=== PATIENT | male | born 1980 | race Caucasian/White ===

== ENCOUNTER 2016-07-27 09:00 | Emergency (ER) | payer OTHER ==
[~2016-07-27] VITALS: Wt 138.0 kg
[2016-07-27] MEDS ORDERED: KETOROLAC 30 MG INJ IM STA (10:17)
--- NOTE | 2016-07-27 10:24 | ERD ---
ER Documentation Chief Complaint Date/Time DATE: 07/27/16 TIME: 10:23 Chief Complaint RIGHT LOWER BACK PAIN NON RADIATING AND FEELS PRESSURE ON HIP X DEW DAYS HPI 36 y/o male presents to ED for right lower back pain. Pain was described as sharp that radiates down to his right lower extremity with pain rate of 10/10 at this time. Patient stated that he has this pain for years already but recalls that it got worse last Monday when he was lifting a big box. Denies headache, loss of consciousness, dizziness, blurry vision, changes in vision, photophobia, facial pain, ear pain, throat pain, difficulty swallowing, neck pain, shoulder pain, chest pain, cough, hemoptysis, abdominal pain, back pain, loss of appetite, nausea, vomiting, hematochezia, diarrhea, constipation, urinary symptoms, bladder and bowel incontinences, numbness or tingling sensation, difficulty walking, recent travel, recent exposure to illness, recent antibiotic use in the last 3 months, fever, chills. Allergy: NKA PMH: Chronic back pain, spinal injury Medications: Denies Surgery: Denies Family history: Denies Primary Social History: Works as a drug and alcohol counselor. Smokes 2 sticks of cigarettes in a day. Denies use of alcohol, use of illegal drugs. ROS All systems reviewed and are negative except as per history of present illness. Medications Home Meds Active Scripts Cyclobenzaprine Hcl* (Cyclobenzaprine Hcl*) 10 Mg Tablet, 10 MG PO TID, #15 TAB Prov:RUTHANN MATUTE 07/27/16 Allergies Allergies: Coded Allergies: No Known Allergy (Unverified , 07/27/16) PMhx/Soc Hx Miscellaneous Medical Probl: Yes (SPINAL CORD INJURY) Hx Alcohol Use: Yes (USED TO DRINK ALCOHOL) Hx Substance Use: Yes (USED TO TAKE DRUGS) Hx Tobacco Use: Yes Smoking Status: Current every day smoker FmHx Denies Physical Exam Vitals Vital Signs Date Time Temp Pulse Resp B/P Pulse Ox O2 Delivery O2 Flow Rate FiO2 07/27/16 11:52 135/78 07/27/16 09:03 98.6 81 20 165/91 99 Physical Exam CONSTITUTIONAL: Well-appearing; well-nourished; in no apparent distress. HEAD: Normocephalic; atraumatic. EYES: Conjunctiva clear, sclera non-icteric, EOM intact. PERRL Ears: Hearing intact. EACs clear, TMs non-bulging, non-inflamed, translucent & mobile, ossicles normal appearance, No obstructions, no erythema, no discharges Nose: No obstructions. No polyps. No external lesions. Mucosa non-inflamed. No external lesions, septum and turbinates normal. No rhinorrhea. No discharges. Frontal sinus is non-tender to palpation. Maxillary sinus is non-tender to palpation. MOUTH: Moist mucous membranes, no lesion, no obstructions, no vesicles, no thrush, patent airway Throat: Uvula in midline. Right tonsil is +1 with no erythema, no exudate. Left tonsil is +1 with no erythema, no exudate. Tolerating secretions well. Good gag reflex. Patent airway. Neck: Supple, without lesions, bruits, or adenopathy. No mass. Thyroid non- enlarged and non-tender to palpation. CHEST: Symmetrical chest. Respirations even and not labored. No retractions noted. CARDIOVASCULAR: Normal S1, S2. RRR. No murmurs, gallops. RESPIRATORY: Normal chest excursion with respiration; breath sounds clear and equal bilaterally; no wheezes, rhonchi, or rales. Breathing even and unlabored. Speaking in clear, full, and complete sentences w/ ease. ABDOMEN: Normal bowel sounds normal. Soft, round, non-distended, non-guarding, no tenderness, no rebound, no organomegaly, no masses, no pulsating abdominal mass. No hernia. No peritoneal signs. : No CVA tenderness. BACK: Symmetrical shoulder. Spine is midline without deformity, tenderness. No evidence of trauma or deformity. PELVIS: Stable pelvis. No evidence of trauma or deformity. MUSCULOSKELETAL: Normal gait and station. No misalignment, asymmetry, crepitation, defects, tenderness, masses, effusions, decreased range of motion, instability, atrophy or abnormal strength or tone in the head, neck, spine, ribs , pelvis or extremities. No calf tenderness. Positive right straight leg test. NEUROVASCULAR: Distal pulses are present. Pedal pulse are present, equal, and normal. Capillary refills are < 2 seconds. NEUROLOGIC: Alert and oriented x4. Speaks full and clear sentences. Cranial Nerves II-XII normal. Sensation to pain, touch, and proprioception normal. Grossly unremarkable. No neurologic deficits. Romberg test is negative. PSYCHOLOGICAL: The patients mood and manner are appropriate. No hallucinations , delusions. Not SI. Not HI. Has the capacity to decide for self SKIN: Normal for age and ethnicity; warm; dry; good turgor; no apparent lesions or exudates. No rashes, hives, discoloration. Intact. Results 24 hrs Current Medications Medications (Trade) Dose Ordered Sig/Pascual Route PRN Reason Start Time Stop Time Status Last Admin Dose Admin Ketorolac Tromethamine (Toradol) 30 mg ONCE STAT IM 07/27/16 10:17 07/27/16 10:27 DC 07/27/16 10:24 Procedures/MDM Examination: Unremarkable examination except negative right straight leg test. Disease process, medical treatment was explained to the patient and family member. They verbalized understanding and agreed with the diagnostic tests, medical treatment, and follow-up care. Radiology: FINDINGS: There is mild lumbar spondylosis. The vertebral bodies are otherwise normal in mineralization, architecture and alignment. No fractures or osseous lesions are identified. There is no evidence of subluxation. The disk spaces are unremarkable. The facet joints are unremarkable. Soft tissues are unremarkable. IMPRESSION: Mild lumbar spondylosis Treatment: Toradol IM Re-evaluation: Relieve the pain. Consultation: None Differential diagnosis: Chronic low back pain versus sciatica versus fracture versus strain Medical decision makin36 y/o male presents to ED for right lower back pain. Pain was described as sharp that radiates down to his right lower extremity with pain rate of 10/10 at this time. Patient stated that he has this pain for years already but recalls that it got worse last Monday when he was lifting a big box. Patient's complaint, history, diagnostic test results are consistent with my final diagnosis of chronic low back pain, sciatica. Medications prescribed are the following: Motrin, Flexeril Patient and family member are made aware of the side effects and adverse reactions of the medications prescribed. Instructed on when to seek emergent and medical attention in case allergic/anaphylactic reactions or severe side effects and or adverse reactions to medications. Patient and family member verbalized understanding. Patient instructed Instructed to follow-up with his PCP in 24-48 hours. PCP to refer patient to EENT, Foundation Relations Manager, Yield Loss Inspector, Gemologist, Hotel Manager, Urologist, Orthopedics, Knurling Machine Tender in 24-48 hours. Instructed to Call 911 for chest pain, shortness of breath. Advised to come back here in ED as soon as possible for severity of symptoms which includes but not limited to: any new symptoms; shortness of breath/difficulty of breathing; cardiovascular changes; severe gastrointestinal symptoms; signs and symptoms of bleeding and or infection; signs of compartment syndrome/neurovascular changes; neurological changes/deficits. Patient and family member verbalized understanding. Upon discharge, patient is alert and oriented x 4, speaks full and clear sentences, denies pain, has no neurological deficits, has no neurovascular deficits, difficulty of breathing. Breathing even and unlabored. Lung sounds are clear to auscultation. Not in distress. Appears comfortable. Ambulatory with steady gait. Appears satisfied with care provided here in ED. Departure Condition: Good Additional Instructions: Follow-up with PCP in 24-48 hours. PCP to refer patient to pain specialist. RUTHANN MATUTE Jul 27, 2016 10:24
--- NOTE | 2016-07-27 11:09 | RADRPT ---
PROCEDURE: XR Lumbar Spine. CLINICAL INDICATION: Low back pain. TECHNIQUE: 3 views of the lumbar spine are available for review COMPARISON: None available FINDINGS: There is mild lumbar spondylosis. The vertebral bodies are otherwise normal in mineralization, archi tecture and alignment. No fractures or osseous lesions are identified. There is no evidence of sub luxation. The disk spaces are unremarkable. The facet joints are unremarkable. Soft tissues are unr emarkable. IMPRESSION: Mild lumbar spondylosis RPTAT: HGDB .Srinivasan Atwood MD, MD Date Time Electronically viewed and signed by .Srinivasan Atwood MD, on 07/27/2016 11:09 .B/
[2016-07-27] MEDS ORDERED: CYCL-319 PO (11:29)
[2016-07-27 11:52] VITALS: BP 135/78
== END 2016-07-27 11:53 | disposition home or self-care (01) ==
LOC: FTE 09:00
DX: M54.41 Lumbago with sciatica, right side (principal); F17.210 Nicotine dependence, cigarettes, uncomplicated
CPT/HCPCS: 72100; J1885; 96372

== ENCOUNTER 2018-05-24 20:12 | Emergency (ER) | END 2018-05-24 21:24 | disposition home or self-care (01) ==

== ENCOUNTER 2018-09-25 18:31 | Emergency (ER) | payer OTHER ==
[~2018-09-25] VITALS: Ht 190.5 cm; Wt 159.1 kg
[~2018-09-25 18:31] MED LIST: CYCL10TA7 PO; ONDA4TAB14 PO
[2018-09-25 18:56] VITALS: Ht 190.5 cm; Wt 159.1 kg
[2018-09-25] MEDS ORDERED: ONDANSETRON 4 MG INJ IV STA (22:22)
[2018-09-25] MEDS ORDERED: SOD CHLORIDE 0.9% 1,000 ML IV STA (22:22)
[2018-09-25] MEDS ORDERED: PANTOPRAZOLE 40 MG INJ IV ONE (22:30)
--- NOTE | 2018-09-25 22:33 | ERD ---
ER Documentation Chief Complaint Chief Complaint AP VS EPIGASTRIC PAIN WITH NAUSEA/VOMITING, +DIAPHOESIS HPI This is a 38-year-old male who is presenting for epigastric pain with nausea, multiple episodes of vomiting and multiple episodes of nonbloody diarrhea. The patient reports that symptoms began approximately 2 weeks ago and have been getting progressively worse since then. The patient describes waxing and waning burning cramping epigastric pain. The patient has also had episodes of diaphoresis. The patient reports that his vomit was initially nonbilious and nonbloody. However, he noticed flecks of blood in his vomit this morning, which was concerning to the patient. The patient reports mostly dry heaving through the afternoon, most recently in the waiting room which has only been mucus. The patient also reports general abdominal bloating. The patient had an episode similar to this in May 2018. He was treated with Zofran with improvement of his symptoms. The patient does not endorse any current exacerbating or alleviating factors. The patient denies any alcohol use. He denies any black or bloody or tarry stools. He denies any constipation. He denies dysuria or hematuria or urgency or frequency. The patient denies fever or chills. The patient has had no headache or vision changes. The patient does not endorse neck or back pain. The patient denies lightheadedness or dizziness. The patient has had no chest pain or trouble breathing. The patient has had no focal deficits. The patient has had no weakness or numbness or tingling to the face or extremities. ROS All systems reviewed and are negative except as per history of present illness. Medications Home Meds Discontinued Scripts Ondansetron (Ondansetron Odt) 4 Mg Tab.rapdis, 4 MG PO Q6H PRN for NAUSEA AND/OR VOMITING, #10 TAB Prov:JUAN QURESHI PA-C 05/24/18 Cyclobenzaprine Hcl* (Cyclobenzaprine Hcl*) 10 Mg Tablet, 10 MG PO TID, #15 TAB Prov:RUTHANN MATUTE 07/27/16 Allergies Allergies: Coded Allergies: No Known Allergy (Unverified , 09/26/18) PMhx/Soc History of Surgery: No Anesthesia Reaction: No Hx Neurological Disorder: No Hx Respiratory Disorders: No Hx Cardiac Disorders: No Hx Psychiatric Problems: No Hx Miscellaneous Medical Probl: Yes (SPINAL CORD INJURY) Hx Alcohol Use: Yes (QUIT SEVERAL YEARS AGO) Hx Substance Use: Yes (QUIT SEVERAL YEARS AGO) Hx Tobacco Use: Yes FmHx Family History: No diabetes Physical Exam Vitals Vital Signs Date Temp Pulse Resp B/P (MAP) Pulse Ox O2 O2 Flow FiO2 Time Delivery Rate 09/25/18 97.6 22 196/94 100 23:41 (128) 09/25/18 97.6 100 22 196/94 100 18:56 (128) Physical Exam Const: No apparent distress, well-developed, well-nourished Head: Normocephalic, Atraumatic Eyes: Normal Conjunctiva. Extraocular movements intact. Pupils equal, round and reactive to light ENT: Normal External Ears, Nose and Mouth. Neck: Full range of motion. No meningismus. Resp: Clear to auscultation bilaterally, No wheezes, rales or rhonchi Cardio: Regular rate and rhythm. No murmurs, rubs or gallops Abd: Soft, non distended. Epigastric tenderness. Normal bowel sounds Skin: No petechiae or rashes Back: No midline tenderness. No CVA tenderness Ext: No cyanosis, or edema Neur: Awake and alert, oriented 4. Cranial nerves intact. No facial droop. Normal strength, sensation and coordination. Psych: Normal Mood and Affect Result Diagram: 09/25/18 2308 09/25/18 2308 Results 24 hrs Laboratory Tests Test 09/25/18 23:00 09/25/18 23:08 Urine Color ARIELLA Urine Clarity CLOUDY Urine pH 7.0 Urine Specific [place] 1.033 Urine Ketones 2+ mg/dL Urine Nitrite NEGATIVE mg/dL Urine Bilirubin NEGATIVE mg/dL Urine Urobilinogen NEGATIVE mg/dL Urine Leukocyte Esterase NEGATIVE Vishal/ul Urine Microscopic RBC 17 /HPF Urine Microscopic WBC 5 /HPF Urine Bacteria MODERATE /HPF Urine Mucus MANY /HPF Urine Hemoglobin NEGATIVE mg/dL Urine Glucose NEGATIVE mg/dL Urine Total Protein 3+ mg/dl White Blood Count 14.3 10^3/ul Red Blood Count 5.64 10^6/ul Hemoglobin 16.6 g/dl Hematocrit 49.7 % Mean Corpuscular Volume 88.1 fl Mean Corpuscular Hemoglobin 29.4 pg Mean Corpuscular Hemoglobin Concent 33.4 g/dl Red Cell Distribution Width 12.9 % Platelet Count 374 10^3/UL Mean Platelet Volume 9.1 fl Immature Granulocytes % 0.600 % Neutrophils % 86.9 % Lymphocytes % 9.6 % Monocytes % 2.8 % Eosinophils % 0.0 % Basophils % 0.1 % Nucleated Red Blood Cells % 0.0 /100WBC Immature Granulocytes # 0.090 10^3/ul Neutrophils # 12.5 10^3/ul Lymphocytes # 1.4 10^3/ul Monocytes # 0.4 10^3/ul Eosinophils # 0.0 10^3/ul Basophils # 0.0 10^3/ul Nucleated Red Blood Cells # 0.0 10^3/ul Prothrombin Time 12.3 Sec Prothrombin Time Ratio 1.0 INR International Normalized Ratio 0.90 Sodium Level 145 mmol/L Potassium Level 3.8 mmol/L Chloride Level 104 mmol/L Carbon Dioxide Level 25 mmol/L Anion Gap 16 Blood Urea Nitrogen 15 mg/dl Creatinine 1.00 mg/dl Est Glomerular Filtrat Rate mL/min > 60 mL/min Glucose Level 128 mg/dl Calcium Level 10.1 mg/dl Total Bilirubin 0.4 mg/dl Direct Bilirubin 0.00 mg/dl Indirect Bilirubin 0.4 mg/dl Aspartate Amino Transf (AST/SGOT) 48 IU/L Alanine Aminotransferase (ALT/SGPT) 91 IU/L Alkaline Phosphatase 59 IU/L Total Protein 8.5 g/dl Albumin 5.0 g/dl Globulin 3.50 g/dl Albumin/Globulin Ratio 1.42 Lipase 129 U/L Current Medications Medications Dose Sig/Pascual Start Time Status Last (Trade) Ordered Route PRN Stop Time Admin Dose Reason Admin Sodium 1,000 ml @ Q1H STAT 09/25/18 DC 09/25/18 Chloride 1,000 mls/hr IV 22:22 23:14 09/25/18 23:21 Ondansetron 8 mg ONCE STAT 09/25/18 DC 09/25/18 HCl (Zofran IV 22:22 23:15 Inj) 09/25/18 22:24 80 mg ONCE ONCE 09/25/18 DC 09/25/18 Pantoprazole IV 22:30 23:15 (Protonix 09/25/18 22:31 Iv) Ketorolac 15 mg ONCE STAT 09/26/18 DC Tromethamine IV 01:44 (Toradol) 09/26/18 01:50 Famotidine 20 mg ONCE ONCE 09/26/18 DC (Pepcid Iv) IV 02:00 09/26/18 02:01 40 ml ONCE ONCE 09/26/18 DC Miscellaneous PO 02:00 Medication 09/26/18 02:01 (Gi Cocktail (2)) 200 ml @ ONCE ONCE 09/26/18 Ciprofloxacin 200 mls/hr IVPB 02:30 / Dextrose 09/26/18 03:29 100 ml @ ONCE ONCE 09/26/18 Metronidazole 100 mls/hr IVPB 02:30 09/26/18 03:29 Ondansetron 4 mg ONCE STAT 09/26/18 DC HCl (Zofran IV 02:10 Inj) 09/26/18 02:12 Procedures/MDM MDM The patient's presentation warrants further investigation. Previous medical marlon rds, if available, were reviewed. LABS The patient's laboratory testing was obtained and reviewed. No emergent treatment was required unless described below. CBC: Leukocytosis with shift, concerning for a possible infection. No E/o anemia or thrombocytopenia Chemistry: No E/o severe acidosis or alkalosis or renal failure or diabetic ketoacidosis. Mild transaminitis, likely reactive. Lipase: No E/o pancreatitis PT/INR: No E/o significant coagulopathy Urine: E/o acute infection with hematuria EKG EKG read by me: Rate/Rhythm: Sinus rhythm at 71 bpm with a sinus arrhythmia Intervals: Normal Lee: Normal Impression: No evidence of acute ischemia. Sinus arrhythmia IMAGING Imaging and Radiology interpretation reviewed. CXR FINDINGS: The heart and mediastinum are within normal limits. The lungs are clear. There is no pleural effusion or pneumothorax. IMPRESSION: No acute disease. Electronically viewed and signed by .Milton Wheeler MD, MD on 09/25/2018 23:27 CT Abd/Pelvis FINDINGS: The lung bases are clear. Evaluation of the abdominal and pelvic viscera is limited by the lack of oral and intravenous contrast. The liver is diffusely hypodense, consistent with fatty infiltration. The gallbladder is normal in appearance. The common bile duct is not dilated. The spleen is not enlarged. No pancreatic lesion is identified and there is no pancreatic ductal dilatation. The adrenal glands are unremarkable. The kidneys are normal in size. There is no perinephric fat stranding. No hydronephrosis is seen. No urinary stone is identified. The small and large bowel are normal in caliber. The transverse, descending, and rectosigmoid colon are underdistended, limiting e valuation for colonic wall thickening. No pericolonic inflammation is seen, however. The appendix is normal. The urinary bladder is unremarkable. The pelvic organs are within normal limits. No lymphadenopathy is identified. There is no ascites. No pneumoperitoneum is seen. There are no arterial calcifications. No suspicious osseous lesion is identified. IMPRESSION: Limited evaluation for transverse, descending, and rectosigmoid colon wall thickening due to colonic underdistension. Colitis cannot be excluded in these regions, although no pericolonic inflammation is seen. Normal appendix. No obstructive uropathy or urinary stone. Fatty infiltration of the liver. Electronically viewed and signed by .Chintan Ch MD, on 09/26/2018 01:46 TREATMENT/DISPOSITION The patient presents with epigastric abdominal pain. I do have suspicion for gastritis versus GERD versus PUD. The patient was given IV fluids, Zofran, GI cocktail, Pepcid and Protonix in the emergency department with some improvement of his symptoms. While there is no obvious evidence of colitis on the CT scan, he reportedly cannot be excluded. The patient does have a mild leukocytosis and has had diarrhea over the last 2 weeks. I do intend to treat with Cipro and Flagyl. There is also evidence of a possible urinary tract infection, which is potentially from his persistent diarrhea. This will be treated with the antibiotics described above. The patient has not had any episodes of hematemesis in the emergency department. I have low suspicion for an esophageal tear or Boerhaave's syndrome. While PUD is possible, I do not see evidence of pneumoperitoneum. I have low suspicion for viscus perforation. The patient does not have any evidence of peritonitis. The patient does not have clinical symptoms concerning for mesenteric ischemia or ischemic colitis. The patient does not have right upper quadrant tenderness, and I have low suspicion for gallstones, cholecystitis or biliary colic. The patient does not have left upper quadrant tenderness. I have low suspicion for pancreatitis. The patient does not have any right lower quadrant tenderness, or periumbilical tenderness. The patient CT scan does not reveal appendicitis. The patient does not have any left lower quadrant tenderness, and I have low suspicion for diverticulosis or diverticulitis. The patient does not have any flank tenderness. The patient CT scan does not reveal nephrolithiasis and I have low suspicion for renal colic. The patient does not have any palpable pulsatile mass or severe abdominal pain radiating to the back. I have low suspicion for aortic aneurysm, dissection or rupture. The patient is not septic clinically, and I do not believe the patient requires a full septic workup. DISCHARGE Upon reevaluation of the patient, symptoms have improved. No emergent diagnoses were identified. At this time, I feel that the patient stable for discharge. The patient was instructed to follow-up with a primary care physician in 1-3 days. The patient will be given strict precautions with which to return to the emergency department. Prescriptions: Zofran, Protonix, Cipro, Flagyl The patient's blood pressure was elevated at greater than 120/80 while in the emergency department. The patient was otherwise stable with no evidence of hypertensive urgency or emergency. The patient does not require admission for blood pressure control. I have discussed with the patient the risks of hypertension. I have instructed the patient to return to the ER for any new or worsening symptoms including chest pain, shortness of breath, headache, blurred vision, confusion, nausea, vomiting or LOC. I have advised the patient to follow up with the primary care physician for outpatient monitoring and treatment for hypertension in 1-3 days. Disclaimer: Inadvertent spelling and grammatical errors are likely due to EHR/dictation software use and do not reflect on the overall quality of patient care. Note that the electronic time recorded on this note does not necessarily reflect the actual time of the patient encounter. Departure Diagnosis: Primary Impression: Colitis Additional Impressions: Epigastric pain Nausea & vomiting Vomiting type: unspecified Vomiting Intractability: non-intractable Qualified Codes: R11.2 - Nausea with vomiting, unspecified Leukocytosis Leukocytosis type: unspecified Qualified Codes: D72.829 - Elevated white blood cell count, unspecified Transaminitis Hematuria Hematuria type: unspecified type Qualified Codes: R31.9 - Hematuria, unspecified UTI (urinary tract infection) Urinary tract infection type: acute cystitis Hematuria presence: with hematuria Qualified Codes: N30.01 - Acute cystitis with hematuria Condition: Stable Patient Instructions: Bacterial Gastroenteritis, Epigastric Pain (Uncertain Cause), Nausea and Vomiting-Adult, Understanding Urinary Tract Infections (UTIs) Additional Instructions: Thank you for for coming to [facility] for your care today. Please ask your nurse or provider if you have questions about your care today and do not leave until all your questions have been answered. Please use any medications given as directed and follow-up with your doctor (or the doctor you were referred to) in the next 1-3 days. If you do not have a primary care doctor you may follow up at the [facility] or [facility] (listed below). You may also use motrin and tylenol as needed for fever and/or pain unless instructed otherwise by your provider or nurse. Indications for more urgent follow-up have been discussed, but you may return to the Emergency Department at ANY time for any worrisome or worsening symptoms. If you have abdominal pain, please know that no test or exam you received is perfect and you should follow up within 8 hours for continued pain. If you had any imaging studies today, such as an X-Ray or CT Scan, these studies will be reviewed later by a radiologist. You will be called if there are important findings that were not identified today, so make sure the contact information you provided at registration is correct. If you received any narcotic pain control medicine today, such as Vicodin, Morphine or Dilaudid, your coordination and judgment may be affected for a number of hours. Please do not drive or operate heavy machinery, and you may want someone to assist you at home. If you were given a prescription for narcotic medication, be aware that it is very addictive- use sparingly and only if necessary. PLEASE SEEK FURTHER EVALUATION AND MANAGEMENT AT YOUR DOCTORS OFFICE WITHIN THE NEXT 1-3 DAYS. IT IS YOUR RESPONSIBILITY TO MAKE AN APPOINTMENT FOR FOLOW-UP CARE. IF YOU HAVE A PRIMARY DOCTOR, PLEASE CALL THEIR OFFICE TO SCHEDULE AN APPOINTMENT FOR FOLLOW UP. IF YOU DO NOT HAVE A PRIMARY DOCTOR YOU CAN CALL OUR PHYSICIAN REFERRAL HOTLINE AT IF YOU CAN NOT AFFORD TO SEE A PHYSICIAN YOU CAN CHOSE FROM THE FOLLOWING [facility]: [facility] [address] [facility] [place] [address] [facility] [address] [facility] [address] [facility] [address] [facility]. [facility]. [address] ANTONIETA POSEY MD Sep 25, 2018 22:33
[2018-09-26] MEDS ORDERED: KETOROLAC 15 MG INJ IV STA (01:44)
[2018-09-26] MEDS ORDERED: FAMOTIDINE 20 MG INJ IV ONE (02:00)
[2018-09-26] MEDS ORDERED: LIDOCAINE/MYLANTA 40 ML BTL PO ONE (02:00)
[2018-09-26] MEDS ORDERED: ONDANSETRON 4 MG INJ IV STA (02:10)
[2018-09-26] MEDS ORDERED: PANT40TA3 PO (02:24)
[2018-09-26] MEDS ORDERED: CIPR500T4 PO (02:24)
[2018-09-26] MEDS ORDERED: ONDA8TAB9 PO (02:24)
[2018-09-26] MEDS ORDERED: METR500T PO (02:24)
[2018-09-26] MEDS ORDERED: metroNIDAZOLE 500 MG/NS (PMX) 100 ML IVPB ONE (02:30)
[2018-09-26] MEDS ORDERED: CIPROFLOXACIN 400MG/D5W 200 ML IVPB ONE (02:30)
[2018-09-26 04:03] VITALS: BP 110/64; PULSE 86; RESP 16
== END 2018-09-26 04:08 | disposition home or self-care (01) ==
LOC: E/R 18:31
DX: K52.9 Noninfective gastroenteritis and colitis, unspecified (principal); D72.829 Elevated white blood cell count, unspecified; N30.01 Acute cystitis with hematuria; R74.0 Nonspecific elevation of levels of transaminase and lactic acid dehydrogenase [LDH]; Z87.891 Personal history of nicotine dependence
CPT/HCPCS: 36415; 71045; 74176; 80053; 81001; 83690; 85025; 85610; 93005; 96365; 96367; 96375; 96376; C9113; J0744; J1885; J2405; J7030; Z7502; Z7610

== ENCOUNTER 2018-09-27 10:10 | Observation (INO) | payer OTHER ==
[~2018-09-27] VITALS: Ht 193 cm; Wt 163.0 kg
[~2018-09-27 10:10] MED LIST changes: +CIPR500T4 PO; -CYCL10TA7 PO; +METR500T PO; -ONDA4TAB14 PO; +ONDA8TAB9 PO; +PANT40TA3 PO
[2018-09-27] MEDS ORDERED: KETOROLAC 15 MG INJ IV STA (10:57)
[2018-09-27] MEDS ORDERED: SOD CHLORIDE 0.9% 1,000 ML IV STA (10:57)
[2018-09-27] MEDS ORDERED: ONDANSETRON 4 MG INJ IV STA (11:17)
[2018-09-27] MEDS ORDERED: ONDANSETRON 4 MG INJ ONE (11:18)
[2018-09-27] MEDS ORDERED: DICYCLOMINE 20 MG INJ IM ONE (11:30)
[2018-09-27] MEDS ORDERED: ONDANSETRON 4 MG INJ IV PRN (13:00)
[2018-09-27] MEDS ORDERED: ACETAMINOPHEN 325 MG TAB PO PRN ×2 (13:00→16:00)
[2018-09-27] MEDS ORDERED: LORAZEPAM 2 MG INJ IV ONE (13:00)
--- NOTE | 2018-09-27 13:04 | ERD ---
ER Documentation Chief Complaint Chief Complaint Complains of abdominal pain Hx of colitis HPI 38-year-old male who presents the emergency room complaining of nausea vomiting and diarrhea with abdominal discomfort. Abdominal pain is 8 out of 10, cramping and diffuse, migratory. The patient was seen here 2 days ago diagnosed with colitis based on labs and CT imaging. Patient has not been able to tolerate oral intake and continues to have nausea vomiting at home. Patient was discharged with antibiotics but no recent travel, sick contacts, exposure to bacterial infection. ROS All systems reviewed and are negative except as per history of present illness. Medications Home Meds Active Scripts Ondansetron Hcl* (Zofran*) 8 Mg Tablet, 8 MG PO Q6H PRN for NAUSEA AND OR VOM ITING, #20 TAB Prov:ANTONIETA MOREJON MD 09/26/18 Pantoprazole* (Protonix*) 40 Mg Tablet.dr, 40 MG PO DAILY, #20 TAB Prov:ANTONIETA MOREJON MD 09/26/18 Metronidazole* (Flagyl*) 500 Mg Tablet, 500 MG PO TID for 7 Days, TAB Prov:ANTONIETA MOREJON MD 09/26/18 Ciprofloxacin Hcl* (Ciprofloxacin Hcl*) 500 Mg Tablet, 500 MG PO BID for 7 Days, TAB Prov:ANTONIETA MOREJON MD 09/26/18 Discontinued Scripts Ondansetron (Ondansetron Odt) 4 Mg Tab.rapdis, 4 MG PO Q6H PRN for NAUSEA AND/OR VOMITING, #10 TAB Prov:JUAN QURESHI PA-C 05/24/18 Cyclobenzaprine Hcl* (Cyclobenzaprine Hcl*) 10 Mg Tablet, 10 MG PO TID, #15 TAB Prov:RUTHANN MATUTE 07/27/16 Allergies Allergies: Coded Allergies: No Known Allergy (Unverified , 09/27/18) PMhx/Soc History of Surgery: No Anesthesia Reaction: No Hx Neurological Disorder: No Hx Respiratory Disorders: No Hx Cardiac Disorders: No Hx Psychiatric Problems: No Hx Miscellaneous Medical Probl: Yes (SPINAL CORD INJURY) Hx Alcohol Use: Yes (QUIT SEVERAL YEARS AGO) Hx Substance Use: Yes (QUIT SEVERAL YEARS AGO) Hx Tobacco Use: Yes Smoking Status: Current every day smoker FmHx Family History: No diabetes Physical Exam Vitals Vital Signs Date Temp Pulse Resp B/P (MAP) Pulse Ox O2 O2 Flow FiO2 Time Delivery Rate 09/27/18 58 20 151/81 98 Room Air 12:24 (104) 09/27/18 98.6 65 20 170/102 100 10:13 (124) Physical Exam General: Well developed, well nourished, no acute distress Head: Normocephalic, atraumatic. Eyes: Pupils equally reactive, EOM intact ENT: Slightly dry mucous membranes Neck: Supple, no lymphadenopathy Respiratory: Lungs clear bilaterally, no distress Cardiovascular: RRR, no murmurs, rubs, or gallops Abdominal: Soft, mild inconsistent abdominal tenderness without localization or peritonitis : Deferred MSK: No edema, no unilateral swelling, 5/5 strength Neurologic: Alert and oriented, moving all extremities, normal speech, no focal weakness, no cerebellar signs Skin: No rash Psych: Normal mood Result Diagram: 09/27/18 1110 09/27/18 1110 Results 24 hrs Laboratory Tests Test 09/27/18 11:10 White Blood Count 10.2 10^3/ul Red Blood Count 5.82 10^6/ul Hemoglobin 17.0 g/dl Hematocrit 50.5 % Mean Corpuscular Volume 86.8 fl Mean Corpuscular Hemoglobin 29.2 pg Mean Corpuscular Hemoglobin Concent 33.7 g/dl Red Cell Distribution Width 12.7 % Platelet Count 345 10^3/UL Mean Platelet Volume 8.9 fl Immature Granulocytes % 0.300 % Neutrophils % 79.8 % Lymphocytes % 15.5 % Monocytes % 3.9 % Eosinophils % 0.1 % Basophils % 0.4 % Nucleated Red Blood Cells % 0.0 /100WBC Immature Granulocytes # 0.030 10^3/ul Neutrophils # 8.1 10^3/ul Lymphocytes # 1.6 10^3/ul Monocytes # 0.4 10^3/ul Eosinophils # 0.0 10^3/ul Basophils # 0.0 10^3/ul Nucleated Red Blood Cells # 0.0 10^3/ul Sodium Level 145 mmol/L Potassium Level 3.6 mmol/L Chloride Level 108 mmol/L Carbon Dioxide Level 21 mmol/L Anion Gap 16 Blood Urea Nitrogen 16 mg/dl Creatinine 1.14 mg/dl Est Glomerular Filtrat Rate mL/min > 60 mL/min Glucose Level 113 mg/dl Calcium Level 10.0 mg/dl Total Bilirubin 0.6 mg/dl Direct Bilirubin 0.00 mg/dl Indirect Bilirubin 0.6 mg/dl Aspartate Amino Transf (AST/SGOT) 55 IU/L Alanine Aminotransferase (ALT/SGPT) 94 IU/L Alkaline Phosphatase 67 IU/L Total Protein 8.4 g/dl Albumin 4.9 g/dl Globulin 3.50 g/dl Albumin/Globulin Ratio 1.40 Lipase 112 U/L Current Medications Medications Dose Sig/Pascual Start Time Status Last (Trade) Ordered Route PRN Stop Time Admin Dose Reason Admin Sodium 1,000 ml @ Q1H STAT 09/27/18 DC 09/27/18 Chloride 1,000 mls/hr IV 10:57 11:20 09/27/18 11:56 Ketorolac 15 mg ONCE STAT 09/27/18 DC 09/27/18 Tromethamine IV 10:57 11:20 (Toradol) 09/27/18 11:01 Ondansetron 4 mg ONCE STAT 09/27/18 DC 09/27/18 HCl (Zofran IV 11:17 11:42 Inj) 09/27/18 11:27 Ondansetron 4 mg STK-MED 09/27/18 DC HCl (Zofran ONCE .ROUTE 11:18 Inj) 09/27/18 11:19 Dicyclomine 10 mg ONCE ONCE 09/27/18 DC 09/27/18 HCl IM 11:30 11:42 (Bentyl) 09/27/18 11:35 Lorazepam 1 mg ONCE ONCE 09/27/18 DC 09/27/18 (Ativan) IV 13:00 12:50 09/27/18 13:01 Procedures/MDM LAB INTERPRETATION: I reviewed the laboratory testing and it shows nonspecific transaminitis that is mild and consistent with baseline improved white count MEDICAL DECISION MAKING: The patient has persistent symptoms of nausea vomiting diarrhea and abdominal pain. His abdominal exam is mostly benign. He had a CT imaging 2 days ago that showed possible colitis though it was a borderline read. The patient's presentations are likely consistent with viral etiology. Patient exhibits no focal tenderness that would be concerning for perforation or acute interabdominal process that would warrant repeat CT imaging. Patient will likely benefit from hydration and symptom control. Repeat laboratory testing will be reasonable. ER COURSE: * The patient's repeat laboratory testing shows no evidence of acute process. I believe this is consistent with viral process, no significant leukocytosis. Patient was given symptom control medication * The patient has persistent symptoms and multiple episodes of nausea vomiting in the emergency room. We discussed inpatient versus outpatient management, the patient feels very uncomfortable discharge. I advised him that there may not be significant interventions on an inpatient basis other than IV fluid hydration but the patient prefers to stay in the hospital. * Based on the fact the patient has not been able to tolerate p.o. intake he is at risk for more severe dehydration would warrant observation admission for further management. * I will hold on antibiotics as this is most likely a viral process, without fever and leukocytosis I believe antibiotics would likely complicate the picture and potentially worsen his diarrhea. CONSULTATION: [None] DISPOSITION PLAN: Accepting care team and consultations: I discussed the current laboratory data, diagnostic imaging and emergency care provided. Admitting team: Dr. Diaz Admitting team indication: Insurance directed Departure Diagnosis: Primary Impression: Abdominal pain Abdominal location: generalized Qualified Codes: R10.84 - Generalized abdominal pain Additional Impressions: Nausea vomiting and diarrhea Dehydration, mild Condition: Stable HILDA WHITE MD Sep 27, 2018 13:04
--- NOTE | 2018-09-27 15:56 | HP ---
Date/Time of Note Date/Time of Note DATE: 09/27/18 TIME: 15:50 Assessment/Plan VTE Prophylaxis Pharmacological prophylaxis: NA/contraindicated Pharm contraindication: low risk/ambulating Lines/Catheters IV Catheter Type (from Nrs): Saline Lock Assessment/Plan Hospital Course 1. Abdominal pain secondary to colitis Etiology is likely viral, patient has no fever or white count Supportive care, IV fluids Pain control IV fluids Clear liquid diet No indication for antibiotics, no evidence of sepsis 2. Mild hypernatremia IV fluids 3. Mild transaminitis Follow-up on hepatitis panel Prophylaxis: Ambulation Result Diagram: 09/27/18 1110 09/27/18 1110 Results 24hrs Laboratory Tests Test 09/27/18 11:10 White Blood Count 10.2 # Red Blood Count 5.82 Hemoglobin 17.0 Hematocrit 50.5 Mean Corpuscular Volume 86.8 Mean Corpuscular Hemoglobin 29.2 Mean Corpuscular Hemoglobin Concent 33.7 Red Cell Distribution Width 12.7 Platelet Count 345 Mean Platelet Volume 8.9 Immature Granulocytes % 0.300 Neutrophils % 79.8 H Lymphocytes % 15.5 Monocytes % 3.9 Eosinophils % 0.1 Basophils % 0.4 Nucleated Red Blood Cells % 0.0 Immature Granulocytes # 0.030 Neutrophils # 8.1 H Lymphocytes # 1.6 Monocytes # 0.4 Eosinophils # 0.0 Basophils # 0.0 Nucleated Red Blood Cells # 0.0 Sodium Level 145 H Potassium Level 3.6 Chloride Level 108 Carbon Dioxide Level 21 Anion Gap 16 H Blood Urea Nitrogen 16 Creatinine 1.14 Est Glomerular Filtrat Rate mL/min > 60 Glucose Level 113 Calcium Level 10.0 Total Bilirubin 0.6 Direct Bilirubin 0.00 Indirect Bilirubin 0.6 Aspartate Amino Transf (AST/SGOT) 55 H Alanine Aminotransferase (ALT/SGPT) 94 H Alkaline Phosphatase 67 Total Protein 8.4 H Albumin 4.9 Globulin 3.50 H Albumin/Globulin Ratio 1.40 Lipase 112 HPI/ROS Admit Date/Time Admit Date/Time September 27, 2018 Hx of Present Illness Patient is a 38-year-old male with no medical history, patient presented to the ER 2 days ago with abdominal pain and diarrhea and was diagnosed with colitis based on labs and CT abdomen. Patient was prescribed antibiotics but is unable to tolerate p.o. intake continues to have vomiting with nausea at home. Patient denies any travel history or sick contacts. Patient has no evidence of sepsis in the ER and has no other complaints. ROS Constitutional: no complaints, improved Eyes: no complaints ENT: no complaints Respiratory: no complaints Cardiovascular: no complaints Gastrointestinal: pain, nausea, vomiting Genitourinary: no complaints Musculoskeletal: no complaints Skin: no complaints Neurologic: no complaints Endocrine: no complaints Lymphatic: no complaints Psychological: no complaints, nl mood/affect Immunologic: no complaints PMH/Family/Social Past Medical History Medical History: no pertinent history Medications Current Medications Ondansetron HCl (Zofran Inj) 4 mg BRIDGE ORDER PRN IV NAUSEA/VOMITING; Start 09/27/18 at 13:00; Stop 09/28/18 at 12:59 Acetaminophen (Tylenol Tab) 650 mg ER BRIDGE PRN PO .MILD PAIN 1-3 OR TEMP; Start 09/27/18 at 13:00; Stop 09/28/18 at 12:59 Coded Allergies: No Known Allergy (Unverified , 09/27/18) Past Surgical History Past Surgical Hx: no surgical history Family History Significant Family History: no pertinent family hx Social History Alcohol Use: rarely Smoking Status: Current every day smoker Drug Use: none Exam/Review of Systems Vital Signs Vitals Vital Signs Date Temp Pulse Resp B/P (MAP) Pulse Ox O2 O2 Flow FiO2 Time Delivery Rate 09/27/18 98.6 60 16 157/95 98 Room Air 15:46 (115) Exam Constitutional: alert, oriented Respiratory: clear to auscultation Cardiovascular: regular rate and rhythm Gastrointestinal: soft; No distended Musculoskeletal: nl extremities to inspection LIZZ ADRIAN Sep 27, 2018 15:55
[2018-09-27] MEDS ORDERED: NACL 0.9% 3 ML SYG IV SCH (16:00)
[2018-09-27] MEDS ORDERED: ZOLPIDEM 5 MG TAB PO PRN (16:00)
[2018-09-27] MEDS: morphine 2 MG INJ IV PRN ×2 (16:05→20:00)
[2018-09-27 16:45] VITALS: BP 177/79; PULSE 56; RESP 18
[2018-09-27] MEDS: ONDANSETRON 4 MG INJ IV PRN (17:11)
[2018-09-27] MEDS: HYDROCODONE/APAP (5/325) TAB PO PRN ×2 (17:11→23:02)
[2018-09-27 17:16] VITALS: Ht 193 cm; Wt 163.0 kg
[2018-09-27 18:00] VITALS: BP 139/82; PULSE 78
[2018-09-27 18:20] VITALS: BP 139/82; PULSE 78
[2018-09-27] MEDS: 1/2 NS + KCL 20 MEQ 1,000 ML IV SCH (18:56)
[2018-09-27 20:14] VITALS: BP 120/68; PULSE 68; RESP 18
[2018-09-28] MEDS: morphine 2 MG INJ IV PRN ×3 (01:47→10:29)
[2018-09-28 01:48] VITALS: BP 122/65; PULSE 64; RESP 18
[2018-09-28] MEDS: ONDANSETRON 4 MG INJ IV PRN ×2 (01:53→10:29)
[2018-09-28] MEDS: 1/2 NS + KCL 20 MEQ 1,000 ML IV SCH ×2 (05:32→11:48)
[2018-09-28] MEDS: HYDROCODONE/APAP (5/325) TAB PO PRN ×2 (07:48→11:50)
[2018-09-28 08:42] VITALS: BP 135/81; PULSE 74; RESP 18
--- NOTE | 2018-09-28 11:29 | PDOCDIS ---
Discharge Instructions CONDITION [id number] Patient Condition: Fnsun6r Good HOME CARE INSTRUCTIONS: [id number] Diet Instructions: [id number] Regular ACTIVITY: [id number] Activity Restrictions: [id number] No Restrictions FOLLOW UP/APPOINTMENTS Follow-up Plan FOLLOW UP WITH YOUR PRIMARY CARE PHYSICIAN IN 1-2 WEEKS LIZZ ADRIAN Sep 28, 2018 11:29
--- NOTE | 2018-09-28 11:55 | DS ---
Date/Time of Note Date/Time of Note DATE: 09/28/18 TIME: 11:50 Discharge Summary Admission/Discharge Info Admit Date/Time Sep 27, 2018 at 13:01 Discharge Date/Time September 28, 2018 Discharge Diagnosis 1. Abdominal pain with nausea and vomiting secondary to colitis-resolved Etiology is likely viral, patient has no fever or white count DC Cipro and Flagyl, Flagyl may have exacerbated nausea and abdominal pain Status post IV fluids Tolerating diet No indication for antibiotics, no evidence of sepsis 2. Mild hypernatremia-resolved Status post IV fluids 3. Mild transaminitis-improved Hepatitis panel is negative Patient Condition: Good Hospital Course Patient is a 38-year-old male with no medical history, patient presented to the ER 2 days prior to this admission with abdominal pain with nausea and vomiting and was diagnosed with possible colitis. Patient was Cipro Flagyl but patient continued to report abdominal pain with nausea vomiting and was unable to tolerate p.o. diet or fluids. Patient's antibiotics were held and was given IV fluids and symptoms did resolve. Patient's abdominal pain and nausea may have been exacerbated by Flagyl, patient had no evidence of sepsis and did not require further antibiotics. Patient likely had a viral syndrome which appears to be resolving. Patient tolerated a p.o. diet and hyponatremia did resolve. Patient stable for DC, on the day of discharge patient vitals, labs of exam are stable. Home Meds Active Scripts Ondansetron Hcl* (Zofran*) 8 Mg Tablet, 8 MG PO Q6H PRN for NAUSEA AND OR VOMITING, #20 TAB Prov:ANTONIETA MOREJON MD 09/26/18 Pantoprazole* (Protonix*) 40 Mg Tablet.dr, 40 MG PO DAILY, #20 TAB Prov:ANTONIETA MOREJON MD 09/26/18 Discontinued Scripts Metronidazole* (Flagyl*) 500 Mg Tablet, 500 MG PO TID for 7 Days, TAB Prov:ANTONIETA MOREJON MD 09/26/18 Ciprofloxacin Hcl* (Ciprofloxacin Hcl*) 500 Mg Tablet, 500 MG PO BID for 7 Days, TAB Prov:ANTONIETA MOREJON MD 09/26/18 Ondansetron (Ondansetron Odt) 4 Mg Tab.rapdis, 4 MG PO Q6H PRN for NAUSEA AND/OR VOMITING, #10 TAB Prov:JUAN QURESHI PA-C 05/24/18 Cyclobenzaprine Hcl* (Cyclobenzaprine Hcl*) 10 Mg Tablet, 10 MG PO TID, #15 TAB Prov:RUTHANN MATUTE 07/27/16 Follow-up Plan FOLLOW UP WITH YOUR PRIMARY CARE PHYSICIAN IN 1-2 WEEKS Primary Care Provider Care Physician No Primary Time spent on discharge: > 30 minutes LIZZ ADRIAN Sep 28, 2018 11:55
== END 2018-09-28 13:15 | disposition home or self-care (01) ==
LOC: E/R 10:10 → 2NE 13:01
PROVIDERS: ADMIT Internal Medicine; ATTEND Internal Medicine
DX: E87.1 Hypo-osmolality and hyponatremia (principal); R74.0 Nonspecific elevation of levels of transaminase and lactic acid dehydrogenase [LDH]
CPT/HCPCS: 36415; 80053; 83036; 83690; 83735; 84100; 85025; 86704; 86709; 86803; 87340; 96372; 96374; 96375; J0500; J1885; J2060; J2270; J2405; J3480; J7030; Z7500; Z7502; Z7610; G0378

== ENCOUNTER 2019-02-04 18:06 | Emergency (ER) | payer OTHER ==
[~2019-02-04] VITALS: Ht 193 cm; Wt 171.0 kg
[~2019-02-04 18:06] MED LIST changes: +CEPH-443 PO; -CIPR500T4 PO; +IBUP800T48 PO; -METR500T PO; +SILV20CR13 TOP; +SULF1TAB31 PO
[2019-02-04 18:22] VITALS: Ht 193 cm; Wt 171.0 kg
[2019-02-04] MEDS ORDERED: SILVER SULFADIAZINE 1% 400 GM CR TOP ONE (18:30)
--- NOTE | 2019-02-04 18:33 | ERD ---
ER Documentation Chief Complaint Chief Complaint right lower extremity burn/swelling HPI 38-year-old male presents ED after burning his right calf 3 days ago. He states that he was working and burned his calf on a hot 1 inch pipe. He denies any fevers or chills. He does report discharge and drainage from the burn. He reports significant pain and states that it is getting slightly bigger. Denies any previous injury to his right leg. He denies any other past medical history. ROS All systems reviewed and are negative except as per history of present illness. Medications Home Meds Active Scripts Sulfamethoxazole/Trimethoprim* (Bactrim Ds* Tablet) 1 Each Tablet, 1 TAB PO BID, #14 TAB Prov:YISSEL CAMPOS PA-C 02/04/19 Cephalexin* (Keflex*) 500 Mg Capsule, 500 MG PO BID for 7 Days, #14 CAP Prov:YISSEL CAMPOS PA-C 02/04/19 Ibuprofen* (Motrin*) 800 Mg Tab, 800 MG PO Q6H PRN for PAIN AND OR ELEVATED TEMP, #30 TAB Prov:YISSEL CAMPOS PA-C 02/04/19 Silver Sulfadiazine* (SSD*) 1% - 20 Gm Cream.gm., 1 APPLIC TOP BID, #1 TUB Prov:YISSEL CAMPOS PA-C 02/04/19 Ondansetron Hcl* (Zofran*) 8 Mg Tablet, 8 MG PO Q6H PRN for NAUSEA AND OR VOMITING, #20 TAB Prov:ANTONIETA MOREJON MD 09/26/18 Pantoprazole* (Protonix*) 40 Mg Tablet.dr, 40 MG PO DAILY, #20 TAB Prov:ANTONIETA MOREJON MD 09/26/18 Allergies Allergies: Coded Allergies: No Known Allergy (Unverified , 09/27/18) PMhx/Soc History of Surgery: No Anesthesia Reaction: No Hx Neurological Disorder: No Hx Respiratory Disorders: No Hx Cardiac Disorders: No Hx Psychiatric Problems: No Hx Miscellaneous Medical Probl: Yes (Spinal cord injury 07/2016) Hx Alcohol Use: Yes (quit years ago) Hx Substance Use: Yes (quit years ago) Hx Tobacco Use: Yes (10 sticks per day) FmHx Family History: No diabetes Physical Exam Vitals Vital Signs Date Temp Pulse Resp B/P (MAP) Pulse Ox O2 O2 Flow FiO2 Time Delivery Rate 02/04/19 98.7 100 24 152/92 99 18:22 (112) Physical Exam Const: No acute distress Head: Atraumatic Eyes: Normal Conjunctiva. Resp: Clear to auscultation bilaterally Cardio: Regular rate and rhythm, Abd: Soft, non tender, non distended. Skin: Right calf: 1-1/2 inch burn lesion that is yellow with slight discharge. Tenderness all around the lesion Neur: Awake and alert Psych: Normal Mood and Affect Results 24 hrs Current Medications Medications Dose Sig/Pascual Start Time Status Last (Trade) Ordered Route PRN Stop Time Admin Dose Reason Admin Silver 1 applic ONCE ONCE 02/04/19 DC Sulfadiazine TOP 18:30 02/04/19 (Thermazene 18:31 1% 400 Gm) Procedures/MDM ED COURSE: The patient was stable throughout ED course. I kept the patient informed of laboratory and diagnostic imaging results throughout the ED course. PROCEDURES: ED irrigation, ED dressing, MEDICATIONS GIVEN: Silvadene Patient tolerated medication well with no adverse reactions. Patient reported improvement in pain. MEDICAL DECISION MAKING: Patient is a 38-year-old male presenting with a burn x3 days on his right calf. I have low suspicion for deep tracking infection, sepsis, lymphangitis. Patient reports frequent drainage and discharge from the wound. He reports significant pain that is worse today making it difficult from the walk. He states he is not limping due to the pain. Patient was irrigated in the ED, Silvadene was applied with a dressing. Patient was discharged with Silvadene, Motrin, and antibiotics for prophylactic care. She did not was given strict return ED protocol in 2 days for a wound recheck. She then agreed to the plan and all questions were answered. She was given strict return to ED precautions if symptoms persist or worsen. Vital signs were reviewed. Patient is afebrile. Patient was not hypoxic. Patient was hemodynamically stable. Patient was told to follow up with primary care for further care and management. PRESCRIPTION: Silvadene, Motrin, Keflex, Bactrim DISCHARGE: At this time, patient is stable for discharge and outpatient management. I have instructed the patient to follow-up with their primary care physician in 1-2 days. I have discussed with the patient the possibility of needing to see a specialist for further workup and imaging studies if symptoms persist. I have instructed the patient to promptly return to the ER for any new or worsening symptoms including increased pain, fever, nausea, vomiting, weakness or LOC. The patient expressed understanding of and agreement with this plan. All questions were answered. Home care instructions were provided. Disclaimer: Inadvertent spelling and grammatical errors are likely due to EHR/ dictation software use and do not reflect on the overall quality of patient care. Also, please note that the electronic time recorded on this note does not necessarily reflect the actual time of the patient encounter. Departure Diagnosis: Primary Impression: Burn injury Condition: Fair Patient Instructions: Burn, Second Degree, Burn, First Degree, Burn, Third Degree Referrals: [facility] YOU HAVE RECEIVED A MEDICAL SCREENING EXAM AND THE RESULTS INDICATE THAT YOU DO NOT HAVE A CONDITION THAT REQUIRES URGENT TREATMENT IN THE EMERGENCY DEPARTMENT. FURTHER EVALUATION AND TREATMENT OF YOUR CONDITION CAN WAIT UNTIL YOU ARE SEEN IN YOUR DOCTORS OFFICE WITHIN THE NEXT 1-2 DAYS. IT IS YOUR RESPONSIBILITY TO MAKE AN APPOINTMENT FOR FOLOW-UP CARE. IF YOU HAVE A PRIMARY DOCTOR --you should call your primary doctor and schedule an appointment IF YOU DO NOT HAVE A PRIMARY DOCTOR YOU CAN CALL OUR PHYSICIAN REFERRAL HOTLINE AT IF YOU CAN NOT AFFORD TO SEE A PHYSICIAN YOU CAN CHOSE FROM THE FOLLOWING [facility] [address] [facility]. [facility] [address] [facility] [facility] [address] [facility] [facility] [address] [facility] [facility] [address] [facility]. [facility]. [address] [facility]. [facility] YOU HAVE RECEIVED A MEDICAL SCREENING EXAM AND THE RESULTS INDICATE THAT YOU DO NOT HAVE A CONDITION THAT REQUIRES URGENT TREATMENT IN THE EMERGENCY DEPARTMENT. FURTHER EVALUATION AND TREATMENT OF YOUR CONDITION CAN WAIT UNTIL YOU ARE SEEN IN YOUR DOCTORS OFFICE WITHIN THE NEXT 1-2 DAYS. IT IS YOUR RESPONSIBILITY TO MAKE AN APPOINTMENT FOR FOLOW-UP CARE. IF YOU HAVE A PRIMARY DOCTOR --you should call your primary doctor and schedule and appointment IF YOU DO NOT HAVE A PRIMARY DOCTOR YOU CAN CALL OUR PHYSICIAN REFERRAL HOTLINE AT . IF YOU CAN NOT AFFORD TO SEE A PHYSICIAN YOU CAN CHOSE FROM THE FOLLOWING [facility] INSTITUTIONS: [facility] [address] [place] [address] [facility] [address] [place] [address] [facility] [address] [place] [address] Additional Instructions: Call your primary care doctor TOMORROW for an appointment during the next 1-2 days.See the doctor sooner or return here if your condition worsens before your appointment time. YISSEL CAMPOS PA-C Feb 04, 2019 18:33
== END 2019-02-04 18:36 | disposition home or self-care (01) ==
LOC: E/R 18:06
DX: T24.231A Burn of second degree of right lower leg, initial encounter (principal); F17.210 Nicotine dependence, cigarettes, uncomplicated; X16.XXXA Contact with hot heating appliances, radiators and pipes, initial encounter; Y92.89 Other specified places as the place of occurrence of the external cause
CPT/HCPCS: 16020; Z7502; Z7610